=== PATIENT | female | born 1990 | race Two or more races ===

== ENCOUNTER 2018-06-03 08:52 | Emergency (ER) | payer OTHER ==
[~2018-06-03] VITALS: Ht 170.2 cm; Wt 54.4 kg
[~2018-06-03 08:52] MED LIST: CIPRO500 MG PO; DIOVAN40 MG; MOTRIN800 MG PO; ULTRACET PO
[2018-06-03] MEDS ORDERED: LEXAPRO20 MG PO (09:02)
[2018-06-03] MEDS ORDERED: XANAX XR0.5 MG PO (14:18)
== END 2018-06-03 14:27 | disposition home or self-care (01) ==
LOC: ER 08:52
DX: R00.2 Palpitations (principal); F41.0 Panic disorder [episodic paroxysmal anxiety]

== ENCOUNTER 2024-09-27 07:01 | Emergency (ER) | payer OTHER ==
[~2024-09-27] VITALS: Ht 170.2 cm; Wt 59.0 kg
[~2024-09-27 07:01] MED LIST changes: +LEXAPRO20 MG PO; +XANAX XR0.5 MG PO
[2024-09-27] MEDS ORDERED: ATIVAN2 M1 PO (07:35)
[2024-09-27] MEDS ORDERED: ACETAMINOPHEN 500 MG GEL..CAP PO ONE ×2 (08:45→08:49)
[2024-09-27 08:57] LABS: HEMOGLOBIN 16.3 g/dL (13-16.00); MEAN CELL VOLUME 91.4 fL (80.0-100.00); MEAN CORPUSCULAR HEMOGLOBIN 30.5 pg (27.00-32.0); MEAN CORPUSCULAR HGB CONC 33.3 g/dl (32.0-36.0); PLATELET COUNT 192 K/uL (150-450); RED BLOOD COUNT 5.36 M/uL (4.00-6.00); RED CELL DISTRIBUTION WIDTH 13.1 % (11.5-14.5)
== END 2024-09-27 12:19 | disposition home or self-care (01) ==
LOC: ER 07:04 → EDSEX 07:04 → ER 07:47
PROVIDERS: General Practice
DX: U07.1 COVID-19 (principal); Z91.013 Allergy to seafood